=== PATIENT | female | born 1975 | race Caucasian/White ===

== ENCOUNTER 2022-01-15 22:15 | Emergency (ER) | payer SELFPAY ==
[2022-01-15 22:20] VITALS: BP 145/81; PULSE 71; RESP 16; TEMP 36.5; O2SAT 98; BMI 29.8
--- NOTE | 2022-01-15 23:08 | W.ED.GENADLT ---
HPI - General Adult General: Chief complaint: General Medical Stated complaint: headache Time Seen by Provider: 01/15/22 23:08 History of Present Illness: 46-year-old female comes in today with complaints of headache starting this morning. Patient has had a persistent headache throughout the day. This evening patient noticed that her right pupil looked different than her left pupil. Patient does not report that her headache is any more severe than previous headaches. Patient moves all extremities well and has no difficulty ambulating. Associated symptoms: Reports headache(s) Review of Systems General: Reports: 10 or more systems reviewed and unremarkable except in HPI and below Neuro: Reports: headache(s) Physical Exam Const: COMMON NORMALS: alert HENMT: COMMON NORMALS: normocephalic and atraumatic HEAD & SCALP: normocephalic and atraumatic THROAT: posterior oropharynx normal Eye: ALIGNMENT: Yes alignment normal PUPIL: Yes pupil size - right Right pupil size (mm): 5 and Yes pupil size - left Left pupil size (mm): 3 EOM: No movement deficit Neck/C-Spine: COMMON NORMALS: full ROM Resp: COMMON NORMALS: normal respiratory effort and clear to auscultation bilaterally AUSCULTATION: clear to auscultation bilaterally Cardio: COMMON NORMALS: regular rate and regular rhythm RATE: regular rate RHYTHM: regular rhythm GI: COMMON NORMALS: non-tender Extremity: COMMON NORMALS: full ROM Neuro: NE COMA SCALE: document GCS findings Ne coma scale eye opening: Spontaneous Ne coma scale verbal response: Orientated Ne coma scale motor response: Obey commands Ne coma scale total score: 15 SENSORIUM/ORIENTATION: Yes alert CRANIAL NERVES: Yes CN normal except as noted SPEECH: speech normal GAIT: Yes Normal gait present Skin: COMMON NORMALS: turgor normal GENERAL SKIN EXAM: turgor normal Course Vital Signs: Vital signs: Vital Signs Temperature 97.7 F 01/15/22 22:20 Pulse Rate 63 01/16/22 00:07 Respiratory Rate 18 01/16/22 00:07 Blood Pressure 120/76 01/16/22 00:07 Pulse Oximetry 93 01/16/22 00:07 Oxygen Delivery Me thod 01/16/22 00:07 [facility] - General Adult Medical Decision Making 46-year-old female comes in today for complaints of headache with abnormal pupil size. On exam her right pupil appears to be about 5 mm and the left pupil appears to be about 3 mm. Patient reports a headache but no worse than her normal headaches. Patient appears nontoxic. Respirations are even lungs are clear to auscultation. Patient moves all extremities well. Differential diagnosis includes subarachnoid hemorrhage, migraine headache. CT of the head was unremarkable. CBC and CMP were normal. Patient was medicated with Reglan and dexamethasone for headache with some improvement. Further discussion with patient and found that she has been using some allergy eyedrops to her eyes today and had used them prior to noticing that abnormal sizes of her pupil. I suspect that the abnormal pupil size is more likely due to the medication and the eyedrop. No signs of serious illness or injury was noted. Recommend follow-up with primary care regarding headaches. Recommend holding off on the eyedrops until resolution of pupil abnormality. Lab Data : 01/15/22 23:35 01/15/22: Radiology Impressions Head CT 01/15/22 23:11 IMPRESSION: No acute intracranial abnormality. Laboratory Results WBC 4.7 10^3/uL (4.0-10.0) 01/15/22: RBC 4.46 10^6/uL (4.1-5.3) 01/15/22: Hgb 13.6 g/dL (11.5-15.3) 01/15/22: Hct 40.5 % (37.0-47.0) 01/15/22: MCV 90.8 fl (81-99) 01/15/22: MCH 30.5 pg (28.0-34.0) 01/15/22: MCHC 33.6 g/dL (30.0-36.0) 01/15/22: RDW 13.2 % (12.1-15.1) 01/15/22: Plt Count 199 10^3/cmm (130-400) 01/15/22: MPV 8.8 fL (7.4-10.4) 01/15/22: Neut % (Auto) 39.8 % 01/15/22: Lymph % (Auto) 47.9 % 01/15/22: [place] % (Auto) 10.0 % 01/15/22: Eos % (Auto) 1.5 % 01/15/22 23:35 Baso % (Auto) 0.6 % 01/15/22 23:35 Neut # (Auto) 1.86 10^3/uL (1.8-7.7) 01/15/22 23:35 Lymph # (Auto) 2.2 10^3/uL (0.8-4.8) 01/15/22 23:35 [place] # (Auto) 0.5 10^3/uL (0.2-0.9) 01/15/22 23:35 Eos # (Auto) 0.1 10^3/uL (0.0-0.8) 01/15/22 23:35 Baso # (Auto) 0.0 10^3/uL (0.0-0.1) 01/15/22 23:35 Nucleated RBC % (auto) 0 % 01/15/22 23:35 Nucleated RBCs # 0.0 /100WBC 01/15/22 23:35 Sodium 145 mmol/L (136-145) 01/15/22 23:35 Potassium 3.7 mmol/L (3.5-5.1) 01/15/22 23:35 Chloride 107 mmol/L (98-107) 01/15/22 23:35 Carbon Dioxide 28 mmol/L (22-29) 01/15/22 23:35 Anion Gap 13.7 (5-19) 01/15/22 23:35 BUN 13 mg/dL (6-20) 01/15/22 23:35 Creatinine 0.8 mg/dL (0.5-0.9) 01/15/22 23:35 GFR Calculation 76.9 mL/min (90-130) L 01/15/22 23:35 Glucose 94 mg/dL (65-115) 01/15/22 23:35 Calculated Osmolality 300 mOsm/kg (285-295) H 01/15/22 23:35 Calcium 8.9 mg/dL (8.5-10.5) 01/15/22 23:35 Total Bilirubin 0.3 mg/dL (0.15-1.2) 01/15/22 23:35 AST 18 U/L (0-32) 01/15/22 23:35 ALT 19 U/L (0-33) 01/15/22 23:35 Alkaline Phosphatase 72 U/L (35-105) 01/15/22 23:35 Total Protein 6.3 g/dL (6.6-8.7) L 01/15/22 23:35 Albumin 4.4 g/dL (3.5-5.2) 01/15/22 23:35 Globulin 1.9 g/dL (1.3-4.6) 01/15/22 23:35 Discharge Plan Discharge Patient Disposition: Home Clinical Impression: Migraine headache Condition: Stable Discharge Orders: Discharge ED (Routine); Ordered 01/16/22 Ordered By: Ismael Ojeda Discharge Diet: Usual diet Discharge Activity: Increase activity as tolerated Patient Instructions: Migraine Headache (ED) Activity Restrictions/Additional Instructions: Home and rest. Drink plenty of fluids. Follow-up with primary care in 1 week for recheck. Return to ER for new concerns or worsening symptoms such as severe headache, persistent nausea and vomiting, fever greater than 100.4, shortness of breath. Coding Level of Care Code ED [employer] Worker for Ekaterina Fwd Exam Comprehensive
--- NOTE | 2022-01-15 23:11 | CTR_ITS ---
PROCEDURE INFORMATION: Exam: CT Head Without Contrast Exam date and time: 01/15/2022 11:58 PM Age: 46 years old Clinical indication: Pain; Visual disturbance; Headache; Patient HX: BLANCA with anisocoria; Additional info: Head ache, unequal pupil TECHNIQUE: Imaging protocol: Computed tomography of the head without contrast. Radiation optimization: All CT scans at this facility use at least one of these dose optimization techniques: automated exposure control; mA and/or kV adjustment per patient size (includes targeted exams where dose is matched to clinical indication); or iterative reconstruction. COMPARISON: No relevant prior studies available. RADIATION DOSE METRICS: Total DLP (mGy-cm): 928.58 FINDINGS: Brain: Normal. No hemorrhage. Unremarkable white matter. No mass effect. Cerebral ventricles: No ventriculomegaly. Paranasal sinuses: Visualized sinuses are unremarkable. No fluid levels. Mastoid air cells: Visualized mastoid air cells are well aerated. Bones/joints: Unremarkable. No acute fracture. Soft tissues: Unremarkable. CT/CT head wo con* [id number] IMPRESSION: No acute intracranial abnormality.
[2022-01-15] MEDS: dexamethasone 10 mg/mL INJ 6 MG IVP (23:28)
[2022-01-15] MEDS: metoclopramide 5 mg/mL SDV 2 mL 10 MG IVP (23:29)
[2022-01-15 23:33] VITALS: BP 120/76; PULSE 64; RESP 18; O2SAT 96
[2022-01-15 23:44] LABS: Basophils % 0.6 %; Eosinophils # 0.1 10^3/uL (0.0-0.8); Eosinophils % 1.5 %; Hematocrit 40.5 % (37.0-47.0); Hemoglobin 13.6 g/dL (11.5-15.3); Lymphocytes # 2.2 10^3/uL (0.8-4.8); Lymphocytes % 47.9 %; Mean Corpuscular HGB Conc 33.6 g/dL (30.0-36.0); Mean Corpuscular Hemoglobin 30.5 pg (28.0-34.0); Mean Corpuscular Volume 90.8 fl (81-99); Mean Platelet Volume 8.8 fL (7.4-10.4); Monocytes # 0.5 10^3/uL (0.2-0.9); Neutrophils # 1.86 10^3/uL (1.8-7.7); Neutrophils % 39.8 %; Nucleated Red Blood Cells % 0 %; Platelet Count 199 10^3/cmm (130-400); Red Blood Count 4.46 10^6/uL (4.1-5.3); Red Cell Distribution Width 13.2 % (12.1-15.1); White Blood Count 4.7 10^3/uL (4.0-10.0)
[2022-01-16 00:01] LABS: Alanine Aminotransferase 19 U/L (0-33); Albumin Level 4.4 g/dL (3.5-5.2); Alkaline Phosphatase 72 U/L (35-105); Anion Gap 13.7 (5-19); Aspartate Amino Transferase 18 U/L (0-32); Blood Urea Nitrogen 13 mg/dL (6-20); Calcium 8.9 mg/dL (8.5-10.5); Carbon Dioxide 28 mmol/L (22-29); Chloride 107 mmol/L (98-107); Globulin 1.9 g/dL (1.3-4.6); Glomerular Filtration Rate 76.9 mL/min (90-130); Glucose 94 mg/dL (65-115); Osmolality Calculated 300 mOsm/kg (285-295); Potassium 3.7 mmol/L (3.5-5.1); Sodium 145 mmol/L (136-145); Total Bilirubin 0.3 mg/dL (0.15-1.2); Total Protein 6.3 g/dL (6.6-8.7)
[2022-01-16 00:07] VITALS: BP 120/76; PULSE 63; RESP 18; O2SAT 93
[2022-01-16 00:53] VITALS: BP 120/76; PULSE 66; RESP 18; O2SAT 93
== END 2022-01-16 00:54 | disposition home or self-care (01) ==
PROVIDERS: Emergency Provider Nurse Practitioner Family
DX: G43.909 Migraine, unspecified, not intractable, without status migrainosus (principal)
CPT/HCPCS: 70450; 80053; 85025; 96374; 96375; 99285; J1100; J2765